=== PATIENT | female | born 1935 | race Caucasian/White ===

== ENCOUNTER 2018-02-17 12:28 | Emergency (ER) | payer MEDICARE ==
[2018-02-17 13:28] VITALS: BP 109/74
--- NOTE | 2018-02-17 13:51 | UC ---
Upper Extremity HPI - HPI Summary HPI Summary: pt injured L thumb at 9:30am today when she slammed thumb in car door. was attended to by [facility] staff and steri strips placed across bleeding cut. dressing was applied and pt was enc to have Xray of thumb done as precaution - History of Current Complaint Chief Complaint: UCUpperExtremity Stated Complaint: THUMB INJURY Time Seen by Provider: 02/17/18 13:25 Hx Obtained From: Patient Onset/Duration: Sudden Onset - L thumb was shut in door Severity Initially: Severe Severity Currently: Moderate Pain Intensity: 6 Location Of Pain: Is Discrete @ - L thumb Character: Throbbing Aggravating Factor(s): Movement Alleviating Factor(s): Ice, Rest Associated Signs And Symptoms: Positive: Bruising - Allergies/Home Medications Allergies/Adverse Reactions: Allergies Allergy/AdvReac Type Severity Reaction Status Date / Time acetaminophen [From Percocet] Allergy See Comment Verified 02/17/18 13:40 aspirin Allergy Joint Pain Verified 02/17/18 13:40 cephalexin [From Keflex] Allergy See Comment Verified 02/17/18 13:40 codeine Allergy See Comment Verified 02/17/18 13:40 latex Allergy Rash Verified 02/17/18 13:40 nickel Allergy Rash And Verified 02/17/18 13:40 Itching oxycodone [From Percocet] Allergy See Comment Verified 02/17/18 13:40 rivaroxaban [From Xarelto] Allergy See Comment Verified 02/17/18 13:40 cica care for scars Allergy See Comment Uncoded 02/17/18 13:40 metals Allergy Rash And Uncoded 02/17/18 13:40 Itching regular cosmetics Allergy Rash And Uncoded 02/17/18 13:40 Itching soap Allergy See Comment Uncoded 02/17/18 13:40 taro coumadin Allergy See Comment Uncoded 02/17/18 13:40 tetanus shot Allergy See Comment Uncoded 02/17/18 13:40 Home Medications: Home Medications Acetaminophen TAB* [Tylenol TAB*] 325 mg PO Q4H PRN 02/17/18 [History Confirmed 02/17/18] Warfarin TAB(*) [Coumadin TAB(*)] 1 mg PO 1700 02/17/18 [History Confirmed 02/17] PMH/Surg Hx/FS Hx/Imm Hx Previously Healthy: Yes Cardiovascular History: Atrial Fibrillation - Surgical History Surgical History: None - Family History Known Family History: Positive: None - Social History Occupation: Retired Lives: With Family Alcohol Use: Occasionally Substance Use Type: None Smoking Status (MU): Never Smoked Tobacco Review of Systems Constitutional: Negative Skin: Bruising, Other - steri stripped wound with no active bleeding L thumb Respiratory: Negative Cardiovascular: Negative Musculoskeletal: Negative Psychological: Negative All Other Systems Reviewed And Are Negative: Yes Physical Exam Triage Information Reviewed: Yes Appearance: Well-Appearing, No Pain Distress, Well-Nourished Vital Signs: Initial Vital Signs Temp 98.5 F 02/17/18 13:22 Pulse 83 02/17/18 13:22 Resp 16 02/17/18 13:22 BP 109/74 02/17/18 13:22 Pulse Ox 98 02/17/18 13:22 Vital Signs Reviewed: Yes Respiratory Exam: Normal Cardiovascular: Positive: Pulses Normal, Brisk Capillary Refill Musculoskeletal: Positive: Other: - minor swelling mid L thumb, ecchymosis, pt reluctant to move thumb d/t pain, no gross deformity Neurological Exam: Normal Skin Exam: Normal Skin: Negative: rashes Diagnostics - Radiology No standard instances Xray Interpretation: No Acute Changes - no fracture Radiology Interpretation Completed By: ED Physician Upper Extremity Course/Dx - Differential Dx/Diagnosis Differential Diagnosis/HQI/PQRI: Contusion, Fracture (Closed) Provider Diagnoses: Left thumb contusion and superficial laceration Discharge - Sign-Out/Discharge Documenting (check all that apply): Discharge/Admit/Transfer - Discharge Plan Condition: Good Disposition: HOME Patient Education Materials: Contusion in Adults (ED), Finger Laceration (ED) Referrals: No Primary Care Phys,NOPCP [Primary Care Provider] - Additional Instructions: elevate hand, keep wound clean and dry use splint for comfort Let steri-strips wear off on their own (do not pull them off) report signs of infection should they occur (redness, swelling, drainage) - Billing Disposition and Condition Condition: GOOD Disposition: HOME
--- NOTE | 2018-02-17 14:10 | RAD ---
HISTORY: Left thumb pain after injury COMPARISONS: None VIEWS: 3, Frontal, lateral, and oblique views of the first digit of left hand FINDINGS: BONE DENSITY: Normal. BONES: There is no displaced fracture. JOINTS: There is osteoarthritis of the first CMC and MCP joints and interphalangeal joint. ALIGNMENT: There is no dislocation. SOFT TISSUES: Unremarkable. OTHER FINDINGS: None. IMPRESSION: OSTEOARTHRITIS. NO ACUTE OSSEOUS INJURY. IF SYMPTOMS PERSIST, RECOMMEND REPEAT IMAGING.
== END 2018-02-17 14:14 | disposition home or self-care (01) ==
LOC: UCEAST 12:28
DX: S60.012A Contusion of left thumb without damage to nail, initial encounter (principal); S61.012A Laceration without foreign body of left thumb without damage to nail, initial encounter; W23.0XXA Caught, crushed, jammed, or pinched between moving objects, initial encounter; Y93.9 Activity, unspecified; Y92.810 Car as the place of occurrence of the external cause; I48.91 Unspecified atrial fibrillation; Z79.01 Long term (current) use of anticoagulants; Z88.5 Allergy status to narcotic agent; Z88.7 Allergy status to serum and vaccine; Z88.8 Allergy status to other drugs, medicaments and biological substances; Z88.6 Allergy status to analgesic agent; Z88.1 Allergy status to other antibiotic agents; Z91.040 Latex allergy status
CPT/HCPCS: 99201; G0463